=== PATIENT | male | born 1995 | race Caucasian/White ===

== ENCOUNTER 2019-08-19 19:44 | Emergency (ER) | payer OTHER ==
[~2019-08-19] VITALS: Ht 172.7 cm; Wt 105.3 kg
[2019-08-19] MEDS ORDERED: TETRACAINE 0.5% OPHTH SOLN 4ML OS ONE (20:15)
[2019-08-19] MEDS ORDERED: FLUORESCEIN OPHTH 1 MG STRIP OS ONE (20:15)
[2019-08-19] MEDS ORDERED: POLYTRIM OPTH DROPS 10ML OS STA (20:48)
[2019-08-19] MEDS ORDERED: POLYSOL OS (20:52)
[2019-08-19] MEDS ORDERED: ADACEL/BOOSTRIX VACCINE (DIPHTH/PERTUSS/ACELL/TETANUS)0.5ML SYR (90715) IM ONE (21:00)
[2019-08-19 21:33] VITALS: BP 142/82
== END 2019-08-19 21:39 | disposition home or self-care (01) ==
LOC: M ED 19:44
DX: T15.12XA Foreign body in conjunctival sac, left eye, initial encounter (principal); T15.02XA Foreign body in cornea, left eye, initial encounter; Y92.9 Unspecified place or not applicable; Y93.9 Activity, unspecified